=== PATIENT | male | born 1965 | race Caucasian/White ===

== ENCOUNTER 2022-02-12 15:43 | Outpatient (CLI) | payer OTHER, SELFPAY ==
--- NOTE | 2022-02-12 | ECG_ITS ---
Measurements Intervals [place] Rate: 60 P: 46 PA: 135 QRS: 1 QRSD: 101 T: 37 QT: 410 QTc: 412 Interpretive Statements SINUS RHYTHM NORMAL ECG NO PREVIOUS ECG AVAILABLE FOR COMPARISON Electronically Signed On 02-12-2022 16:22:37 CDT by Med David M.D.
[2022-02-12 16:12] LABS: Anion Gap 8 mmol/L (8-16); Blood Urea Nitrogen 16 mg/dL (9-20); Calcium 8.7 mg/dL (8.4-10.2); Carbon Dioxide 26 mmol/L (22-30); Chloride 105 mmol/L (98-107); Estimated Glomerular Filt Rate > 60; Glucose 97 mg/dL (65-110); Potassium 3.9 mmol/L (3.4-5.0); Sodium 139 mmol/L (137-145)
== END 2022-02-12 15:44 | disposition home or self-care (01) ==
PROVIDERS: PCP Nurse Practitioner Family; Visit Provider Orthopaedic Surgery Hand Surgery
DX: Z01.818 Encounter for other preprocedural examination (principal)
CPT/HCPCS: 36415; 80048; 93005

== ENCOUNTER 2024-03-02 06:31 | Outpatient (CLI) | payer BC, SELFPAY ==
--- NOTE | ~2024-03-02 | MR_ITS ---
MRI of the left shoulder Technique: Axial proton-density fat-sat images, coronal proton density fat-sat and T2 fat-sat images, and sagittal T1-weighted and T2 fat-sat images were acquired. Clinical History: Partial thickness rotator cuff tear Findings: There is moderate AC joint degenerative change, with cystic change of the distal clavicle. Coracoclavicular, coracoacromial, and coracohumeral ligaments are intact. There is a 3 mm linear low-grade partial thickness interstitial tear at the distal infraspinatus tend on insertion. No high-grade partial or full-thickness tear of the supraspinatus or infraspinatus tend on identified. There is moderate supraspinatus tendinosis. Subscapularis tendon is intact, mild to mo derate tendinosis. Tendon of the long head of the biceps is intact. There is superior labral tear extending to the anterosuperior portion. Inferior glenohumeral ligament is intact. No degenerative change or effusion of the glenohumeral join t. There is minimal fluid in the subacromial/deltoid bursa. No muscle atrophy or edema. Impression: 3 mm linear low-grade interstitial tear of the distal infraspinatus tendon insertion. No high-grade p artial or full-thickness rotator cuff tear. Background rotator cuff tendinosis, as above. Superior labral tear involving the anterosuperior portion. Minimal subacromial/subdeltoid bursitis. Moderate AC joint degenerative change. Reviewed, dictated and finalized at [facility]. Impression: 3 mm linear low-grade interstitial tear of the distal infraspinatus tendon inse rtion. No high-grade partial or full-thickness rotator cuff tear. Background rotator cuff tendinosis, as above. Superior labral tear involving the anterosuperior portion. Minimal subacromial/subdeltoid bursitis. Moderate AC joint degenerative change.
== END 2024-03-02 06:32 | disposition home or self-care (01) ==
PROVIDERS: PCP Nurse Practitioner Family; Visit Provider Orthopaedic Surgery
DX: S46.012A Strain of muscle(s) and tendon(s) of the rotator cuff of left shoulder, initial encounter (principal); M75.32 Calcific tendinitis of left shoulder; S43.432A Superior glenoid labrum lesion of left shoulder, initial encounter; M19.012 Primary osteoarthritis, left shoulder; M75.52 Bursitis of left shoulder; X58.XXXA Exposure to other specified factors, initial encounter
CPT/HCPCS: 73221

== ENCOUNTER 2025-04-19 14:57 | Outpatient (CLI) | payer OTHER, SELFPAY ==
--- NOTE | ~2025-04-19 | MR_ITS ---
MRI of the left shoulder Technique: Axial proton-density fat-sat images, coronal proton density fat-sat and T2 fat-sat images, and sagittal T1-weighted and T2 fat-sat images were acquired. COMPARISON: 03/02/2024 Clinical History: Pain Findings: There is mild AC joint degenerative change. Coracoclavicular, coracoacromial, and coracohum eral ligaments are intact. There is advanced supraspinatus and infraspinatus tendinosis without partial or full-thickness tear. Subscapularis tendon is intact, without partial tear. Tendon of the long head the biceps is intact. There is probable truncation or tear of the superior labrum. Inferior glenohumeral ligament is intact. No degenerative change or effusion of the glenohumeral join t. No fluid distention of the subacromial/subdeltoid bursa. No muscle atrophy or edema. Impression: Diffuse rotator cuff tendinosis. No partial or full-thickness tear evident. Truncation of the superior labrum could reflect interval labral debridement or progression of superio r labral tear. Correlate with surgical history. Mild AC joint degenerative change. Reviewed, dictated and finalized at location . Impression: Diffuse rotator cuff tendinosis. No partial or full-thickness tear evident. Truncation of the superior labrum could reflect interval labral debridement or progression of superior labral tear. Correlate with surgical history. Mild AC joint degenerative change.
== END 2025-04-19 14:58 | disposition home or self-care (01) ==
LOC: MICIMG 14:59
PROVIDERS: PCP Orthopaedic Surgery; Visit Provider Orthopaedic Surgery
DX: M19.012 Primary osteoarthritis, left shoulder (principal); M75.32 Calcific tendinitis of left shoulder; Z98.890 Other specified postprocedural states
CPT/HCPCS: 73221